=== PATIENT | male | born 1945 | race African-American/Black ===

== ENCOUNTER 2017-08-03 14:01 | Emergency (ER) | payer MEDICARE ==
[2017-08-03] MEDS ORDERED: Adacel (T-DAP) 0.5 ML VIAL ONE (14:26)
--- NOTE | 2017-08-03 14:44 | RAD ---
RIGHT FOOT THREE VIEWS: History: Stepped on a nail. Comparison: None. FINDINGS: There is vascular calcification. Lisfranc alignment is maintained. There is a punctate lucency involving the plantar soft tissues of the fifth metatarsal. There is asso ciated soft tissue swelling. There is evidence for cellulitis. There appear to be chronic changes inv olving the fifth metatarsal. Definite radiographic evidence of osteomyelitis is not appreciated. IMPRESSION: Soft tissue injury with probable cellulitis involving the fifth digit. No radiographic evidence of os teomyelitis. MRI if clinically warranted. POS: LUIS M
== END 2017-08-03 15:00 | disposition home or self-care (01) ==
LOC: NAV ERS 14:01
DX: S91.331A Puncture wound without foreign body, right foot, initial encounter (principal); E11.40 Type 2 diabetes mellitus with diabetic neuropathy, unspecified; E78.5 Hyperlipidemia, unspecified; I10 Essential (primary) hypertension; Z79.4 Long term (current) use of insulin; Z79.899 Other long term (current) drug therapy; Z23 Encounter for immunization; W45.0XXA Nail entering through skin, initial encounter
CPT/HCPCS: 90471; 90715